=== PATIENT | female | born 1950 | race Caucasian/White ===

== ENCOUNTER 2020-10-09 10:29 | Outpatient (CLI) | payer OTHER | END 2020-10-09 10:38 | disposition HB | LOC: RAD 10:29 | PROVIDERS: ATTEND Internal Medicine Gastroenterology | DX: M47.892 Other spondylosis, cervical region (principal); K44.9 Diaphragmatic hernia without obstruction or gangrene; R13.12 Dysphagia, oropharyngeal phase ==